=== PATIENT | male | born 1990 | race Caucasian/White ===

== ENCOUNTER 2017-10-16 20:12 | Observation (INO) | payer OTHER ==
[~2017-10-16] VITALS: Ht 182.9 cm; Wt 90.7 kg
[2017-10-16 20:43] LABS: ABSOLUTE BASOPHIL COUNT 0 /CUMM (0.0-0.2); ABSOLUTE EOSINOPHIL COUNT 0.4 /CUMM (0.0-0.7); ABSOLUTE GRANULOCYTE CT 5.8 /CUMM (1.4-6.5); ABSOLUTE LYMPH COUNT 2.7 /CUMM (1.2-3.4); BASOPHIL % 0.4 % (0.0-2.0); EOSINOPHIL % 4.4 % (0-5); GRANULOCYTE % 57.9 % (42.2-75.2); HEMATOCRIT 44.2 % (42-52); MEAN CORPUSCULAR HGB 30.9 PG (27.0-31.0); MEAN CORPUSCULAR HGB CONC 34.5 G/DL (33.0-37.0); MEAN CORPUSCULAR VOLUME 89.8 FL (80.0-94.0); MEAN PLATELET VOLUME 8.5 FL (7.4-10.4); PLATELET COUNT 238 /CUMM (130-400); RBC DISTRIBUTION WIDTH 12.6 % (11.5-14.5); RED BLOOD CELL CT 4.93 /CUMM (4.70-6.10); WHITE BLOOD CELL COUNT 10.1 /CUMM (4.8-10.8)
--- NOTE | 2017-10-16 21:18 | ED GI/GU/ABDOMINAL COMPLAINT ---
History of Present Illness General Chief Complaint: Abdominal Pain/Flank Pain Stated Complaint: ABD PAIN Source: patient Exam Limitations: no limitations Vital Signs & Intake/Output Vital Signs & Intake/Output Vital Signs Date Time Temp Pulse Resp B/P B/P Pulse O2 O2 Flow FiO2 Mean Ox Delivery Rate 10/16 2347 96.3 78 18 121/64 98 Room Air 10/163 99.2 10/16 2204 99.2 80 18 128/82 97 Room Air 10/16 2202 100.5 10/16 2028 100.5 102 20 146/105 98 ED Intake and Output 10/17 0000 10/16 1200 Intake Total 0 Output Total 0 Balance 0 Intake, Oral 0 Output, Urine 0 Patient 200 lb Weight Allergies Uncoded Allergies: PENCILLIN (HIVES 10/16/17) Triage Note: PER PT NV YESTERDAY PAIN LUQ NONRADIATING WENT TO WALK IN SENT TO ED VIA EMS NO APPETITIE, Triage Nurses Notes Reviewed? yes Onset: Gradual Duration: day(s): Timing: recent history Quality/Severity: moderate Severity Numbers: 5 Location: right lower quadrant HPI: 27-year-old male presents emergency department complaining of right lower quadrant abdominal pain beginning yesterday. Patient states the pain has been gradually worsening. Pain described as right lower quadrant, 5/10 while at rest , 8/10 while walking or with movement. Pain radiates slightly toward right flank. Patient also reports nausea yesterday with anorexia. Last bowel movement was yesterday and normal. Patient was seen and evaluated at an urgent care today and referred here to the emergency department for further evaluation. The patient denies diarrhea, vomiting, dyspnea, recent travel, history of similar abdominal pain. (Sherry Clements) Reconcile Medications No Known Home Medications (Alana LECHUGA,Adam Cordova) Past History Travel History Traveled to [place] past 21 day No Medical History Any Pertinent Medical History? see below for history Neurological: NONE EENT: NONE Cardiovascular: hypertension Gastrointestinal: NONE Hepatic: NONE Renal: NONE Musculoskeletal: NONE Psychiatric: NONE Endocrine: NONE Surgical History Surgical History: non-contributory Psychosocial History What is your primary language Trinidadian Tobacco Use: Never used Family History Hx Contributory? No (Sherry Clements) Review of Systems Review of Systems Constitutional: Reports: see HPI. EENTM: Reports: no symptoms. Respiratory: Reports: no symptoms. Cardiovascular: Reports: no symptoms. GI: Reports: see HPI. Genitourinary: Reports: no symptoms. Musculoskeletal: Reports: no symptoms. Skin: Reports: no symptoms. Neurological/Psychological: Reports: no symptoms. Hematologic/Endocrine: Reports: no symptoms. Immunologic/Allergic: Reports: no symptoms. All Other Systems: Reviewed and Negative (Carol LYMAN,Sherry Ledbetter) Physical Exam Physical Exam General Appearance: well developed/nourished, no apparent distress, alert, awake Head: atraumatic, normal appearance Eyes: Bilateral: normal appearance. Ears, Nose, Throat, Mouth: hearing grossly normal, moist mucous membrane Neck: normal inspection, supple, full range of motion Respiratory: normal breath sounds, no respiratory distress, lungs clear Cardiovascular: tachycardia Gastrointestinal: normal bowel sounds, soft, no organomegaly, RLQ tenderness with rebound tenderness, +McBurney's point tenderness, -Rosving's sign Back: normal inspection, normal range of motion Extremities: normal range of motion Neurologic/Psych: awake, alert, oriented x 3 Skin: intact, normal color, warm/dry Core Measures ACS in differential dx? No Sepsis Present: No Sepsis Focused Exam Completed? No (Carol LYMAN,Sherry Ledbetter) Progress Differential Diagnosis: appendicitis, bowel obstruction, cholecystitis, diverticulitis, gastritis, hepatitis, hernia, inflamm bowel dis, pancreatitis, peptic ulcer, PUD/GERD, SBO, ureterolithiasis, UTI/pyelo Plan of Care: Orders Procedure Date/time Status Nothing by Mouth 10/17 B Active Vital Signs 10/17 112 Active Teach/Educate 10/17 112 Active Pain Treatment and Response 10/17 112 Active Nutritional Intake, Monitor 10/17 112 Active Isolation 10/17 011 Active Intake & Output 10/17 011 Active Patient Care Conference 10/17 011 Active Activity/Ambulation 10/17 011 Active Pathway - chart 10/16 2340 Active Patient Data 10/16 2335 Active Code Status 10/16 2335 Active Add-on Test (ER Only) 10/16 2128 Active HIGH SENSITIVITY CRP 10/16 2028 Complete C-REACTIVE PROTEIN 10/16 2028 Complete URINALYSIS 10/16 2022 Active LIPASE 10/16 2022 Complete COMPREHENSIVE METABOLIC PANEL 10/16 2022 Complete CBC WITHOUT DIFFERENTIAL 10/16 2022 Complete AMYLASE 10/[address] in observation 10/16 UNK Active VTE Mechanical Prophylaxis 10/16 UNK Active Vital Signs 10/16 UNK Active Intake & Output 10/16 UNK Active Activity/Ambulation 10/16 UNK Active Current Medications Sig/Toni Start time Last Medication Dose Stop Time Status Admin Heparin Sodium 5,000 UNIT Q8 10/17 1400 AC (Porcine) Ceftriaxone Sodium 1,000 MG DAILY 10/17 1000 AC (Rocephin) Metronidazole 500 MG IQ8 10/17 0800 AC (Flagyl) N/A 1 UNIT (No Carrier) Acetaminophen 650 MG Q6PRN PRN 10/16 234 AC (Tylenol) Dextrose/Sodium 1,000 ML .Q8H 10/16 2345 AC 10/17 Chloride 0025 (D5-Normal Saline) Hydromorphone HCl 1 MG Q2-3 HRS NEEDED.. 10/16 2344 CAN (Dilaudid) Morphine Sulfate 2 MG Q2P PRN 10/16 2345 AC (Morphine) Morphine Sulfate 4 MG Q2P PRN 10/16 234 AC (Morphine) Ondansetron HCl 4 MG Q6-PRN PRN 10/16 234 AC (Zofran) Laboratory Tests 10/16/172028: Anion Gap 12, Estimated GFR > 60, BUN/Creatinine Ratio 19.0, Glucose 87, Calcium 9.7, Total Bilirubin 0.9, AST 29, ALT 42, Alkaline Phosphatase 99, C-Reactive Prot, Quant 4.3 H, C-React Prot High Sens > 15.0 H, Total Protein 7.8, Albumin 4.7, Globulin 3.1, Albumin/Globulin Ratio 1.5, Amylase 48, Lipase 69, CBC w Diff NO MAN DIFF REQ, RBC 4.93, MCV 89.8, MCH 30.9, MCHC 34.5, RDW 12.6, MPV 8.5, Gran % 57.9, Lymphocytes % 27.2, Monocytes % 10.1 H, Eosinophils % 4.4, Basophils % 0.4, Absolute Granulocytes 5.8, Absolute Lymphocytes 2.7, Absolute Monocytes 1.0 H, Absolute Eosinophils 0.4, Absolute Basophils 0 Patient medicated with IV fluids, acetaminophen regarding his tachycardia and fever. Patient with right lower quadrant tenderness, anorexia, nausea which is suspicious for appendicitis. We'll obtain CT scan to further assess for intra- abdominal pathology. The patient was signed out to Dr. Warner pending CT scan. Initial ED EKG: none Hand-Off Endorsed To: Adam Warner MD Endorsed Time: 2238 Pending: CT (Sherry Clements) Diagnostic Imaging: Viewed by Me: CT Scan. Discussed w/RAD: CT Scan. Radiology Impression: PATIENT: NIDA MILES PRESENT AGE: 27 PATIENT ACCOUNT NO: [id number] : 88 LOCATION: [facility] ORDERING PHYSICIAN: Sherry LYMAN SERVICE DATE: 10/16/17 EXAM TYPE: CAT - CT ABD & PELVIS W IV CONTRAST EXAMINATION: CT ABDOMEN AND PELVIS WITH CONTRAST CLINICAL INFORMATION: Tenderness right lower quadrant. Fever. COMPARISON: None TECHNIQUE: Multidetector volumetric imaging was performed of the abdomen and pelvis following IV administration of 98 mL of Optiray 320 intravenous contrast. Sagittal and coronal reformatted images were obtained on the technologist's workstation. DLP: 370.53 mGy-cm FINDINGS: LUNG BASES: The visualized lung bases are unremarkable. LIVER, GALLBLADDER, AND BILIARY TREE: The liver is normal in size, shape, and attenuation. No focal hepatic lesion or biliary ductal dilatation is present. Gallbladder is contracted. No bile duct dilatation. PANCREAS: Unremarkable. SPLEEN: Unremarkable. ADRENAL GLANDS: Unremarkable. KIDNEYS AND URETERS: The kidneys are normal in size, shape, and attenuation. No hydronephrosis, hydroureter, or calculi seen. No perinephric stranding. BLADDER: Unremarkable. GASTROINTESTINAL TRACT: There is subtle edema around the appendix in the mesentery. The appendix measures 7 mm in diameter. Findings concerning for appendicitis in appropriate clinical setting. No acute change of the bowel. No bowel obstruction. No bowel wall thickening or edema. Scattered stool in the colon. ABDOMINAL WALL: No significant hernia is appreciated. LYMPH NODES: Normal. VASCULAR: Unremarkable. PELVIC VISCERA: Unremarkable. OSSEOUS STRUCTURES: Unremarkable. IMPRESSION: The appendix measures 7 mm in diameter and there is subtle periappendiceal edema in the mesentery which are findings concerning for appendicitis. DICTATED BY: Jhony Thomas MD DATE/TIME DICTATED:10/16/172309 ETHANOL MAINTENANCE MECHANIC:TEDDY DATE/TIME TRANSCRIBED:10/16/172309 CONFIDENTIAL, DO NOT COPY WITHOUT APPROPRIATE AUTHORIZATION. <Electronically signed in Other Vendor System> SIGNED BY: Jhony Thomas MD 10/16/17 3923 (Alana LECHUGA,Adam Cordova) Departure Departure Disposition: STILL A PATIENT Condition: Stable Referrals: Irineo LECHUGA,Darek Hayes (PCP/Family) Departure Forms: Customer Survey General Discharge Information (Carol LYMAN,Sherry Ledbetter) Departure Clinical Impression Primary Impression: Appendicitis Prescriptions: Current Visit Scripts No Known Home Medications Observation Note Spoke With: Dominik LECHUGA,Emerson Clark Place Patient In: Non-ED OBS Care Area Rationale for Observation: My rational for observation is as follows . PT WITH APPENDICITIS... WILL NEED SURGERY. PA/LIME PULLER Co-Sign Statement Statement: ED Attending supervision documentation- [X] I saw and evaluated the patient. I have also reviewed all the pertinent lab results and diagnostic results. I agree with the findings and the plan of care as documented in the PA's/LIME PULLER's documentation. 10/16/17, 23:40... PT WITH APPY ON CT SCAN... MERITS SURGICAL REPAIR. [] I have reviewed the ED Record and agree with the PA's/LIME PULLER's documentation. [] Additions or exceptions (if any) to the PAs/LIME PULLER's note and plan are summarized below: [] (Alana LECHUGA,Adam Cordova)
--- NOTE | 2017-10-16 23:18 | CT SCAN REPORT ---
EXAMINATION: CT ABDOMEN AND PELVIS WITH CONTRAST CLINICAL INFORMATION: Tenderness right lower quadrant. Fever. COMPARISON: None TECHNIQUE: Multidetector volumetric imaging was performed of the abdomen and pelvis following IV administration of 98 mL of Optiray 320 intravenous contrast. Sagittal and coronal reformatted images were obtained on the technologist's workstation. DLP: 370.53 mGy-cm FINDINGS: LUNG BASES: The visualized lung bases are unremarkable. LIVER, GALLBLADDER, AND BILIARY TREE: The liver is normal in size, shape, and attenuation. No focal hepatic lesion or biliary ductal dilatation is present. Gallbladder is contracted. No bile duct dilatation. PANCREAS: Unremarkable. SPLEEN: Unremarkable. ADRENAL GLANDS: Unremarkable. KIDNEYS AND URETERS: The kidneys are normal in size, shape, and attenuation. No hydronephrosis, hydroureter, or calculi seen. No perinephric stranding. BLADDER: Unremarkable. GASTROINTESTINAL TRACT: There is subtle edema around the appendix in the mesentery. The appendix measures 7 mm in diameter. Findings concerning for appendicitis in appropriate clinical setting. No acute change of the bowel. No bowel obstruction. No bowel wall thickening or edema. Scattered stool in the colon. ABDOMINAL WALL: No significant hernia is appreciated. LYMPH NODES: Normal. VASCULAR: Unremarkable. PELVIC VISCERA: Unremarkable. OSSEOUS STRUCTURES: Unremarkable. IMPRESSION: The appendix measures 7 mm in diameter and there is subtle periappendiceal edema in the mesentery which are findings concerning for appendicitis.
--- NOTE | 2017-10-16 23:42 | Admission Core Measures ---
Acute Coronary Syndrome (CM) ACS Core Measures Acute Coronary Syndrome Diagnosis No Congestive Heart Failure (NEW) CHF Core Measures Congestive Heart Failure Diagnosis No Cerebrovascular Accident (NEW) CVA Core Measures CVA/TIA Diagnosis No Venous Thromboembolism VTE Core Alex (View Protocol) VTE Risk Factors Surgery No Mechanical VTE Prophylaxis d/t N/A MechProphylax Ordered No VTE Pharm Prophylaxis d/t NA PharmProphylax ordered Problem List As ranked by this Provider includes Assessment & Plan 1. Appendicitis HOME MEDS Home Med List No Known Home Medications
--- NOTE | 2017-10-16 23:50 | History & Physical Pre-Op ---
Maria D Marte 10/16/17 1002: General Information and HPI History of Present Illness: 27yoM with no PMHx presents to emergency Department evening with complaints of 2 days of worsening abdominal pain. Pain began as vague generalized discomfort and has now localized to sharp pain in the right lower quadrant. He has had some nausea, though no emesis. Last bowel movement yesterday. He had a small snack of almonds at lunch today, otherwise has not eaten since yesterday lunch. Denies chest pain, shortness of breath, fevers, chills, sick contacts, changes in urination, changes in bowel habits. Denies abdominal surgery history. Denies history of gastrointestinal disorders. Allergies/Medications Home Med list No Known Home Medications Past History Medical History Cardiovascular: NONE Respiratory: NONE Gastrointestinal: NONE Renal: NONE Musculoskeletal: sp R wrist surgery 2017 Surgical History Pertinent Surgical History: r wrist procedure Past Family/Social History Psychosocial History Where Do You Live? 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 Exam & Diagnostic Data Last 24 Hrs of Vital Signs/I&O Vital Signs Date Time Temp Pulse Resp B/P B/P Pulse O2 O2 Flow FiO2 Mean Ox Delivery Rate 10/16 2312 99.2 10/16 2204 99.2 80 18 128/82 97 Room Air 10/16 2202 100.5 10/16 2028 100.5 102 20 146/105 98 Physical Exam: GEN: NAD CARD: S1S2 RRR PULM: CTAB ABD: softly distended, ttp rlq and suprapubic, no r/g, quiet bs, no lesions or masses EXT: calves soft nt, no edema Last 24 Hrs of Labs/Anuj: Laboratory Tests 10/16/172028: Anion Gap 12, Estimated GFR > 60, BUN/Creatinine Ratio 19.0, Glucose 87, Calcium 9.7, Total Bilirubin 0.9, AST 29, ALT 42, Alkaline Phosphatase 99, C-Reactive Prot, Quant 4.3 H, C-React Prot High Sens > 15.0 H, Total Protein 7.8, Albumin 4.7, Globulin 3.1, Albumin/Globulin Ratio 1.5, Amylase 48, Lipase 69, CBC w Diff NO MAN DIFF REQ, RBC 4.93, MCV 89.8, MCH 30.9, MCHC 34.5, RDW 12.6, MPV 8.5, Gran % 57.9, Lymphocytes % 27.2, Monocytes % 10.1 H, Eosinophils % 4.4, Basophils % 0.4, Absolute Granulocytes 5.8, Absolute Lymphocytes 2.7, Absolute Monocytes 1.0 H, Absolute Eosinophils 0.4, Absolute Basophils 0 Diagnostic Data Other Results SERVICE DATE: 10/16/17 EXAM TYPE: CAT - CT ABD & PELVIS W IV CONTRAST EXAMINATION: CT ABDOMEN AND PELVIS WITH CONTRAST CLINICAL INFORMATION: Tenderness right lower quadrant. Fever. COMPARISON: None TECHNIQUE: Multidetector volumetric imaging was performed of the abdomen and pelvis following IV administration of 98 mL of Optiray 320 intravenous contrast. Sagittal and coronal reformatted images were obtained on the technologist's workstation. DLP: 370.53 mGy-cm FINDINGS: LUNG BASES: The visualized lung bases are unremarkable. LIVER, GALLBLADDER, AND BILIARY TREE: The liver is normal in size, shape, and attenuation. No focal hepatic lesion or biliary ductal dilatation is present. Gallbladder is contracted. No bile duct dilatation. PANCREAS: Unremarkable. SPLEEN: Unremarkable. ADRENAL GLANDS: Unremarkable. KIDNEYS AND URETERS: The kidneys are normal in size, shape, and attenuation. No hydronephrosis, hydroureter, or calculi seen. No perinephric stranding. BLADDER: Unremarkable. GASTROINTESTINAL TRACT: There is subtle edema around the appendix in the mesentery. The appendix measures 7 mm in diameter. Findings concerning for appendicitis in appropriate clinical setting. No acute change of the bowel. No bowel obstruction. No bowel wall thickening or edema. Scattered stool in the colon. ABDOMINAL WALL: No significant hernia is appreciated. LYMPH NODES: Normal. VASCULAR: Unremarkable. PELVIC VISCERA: Unremarkable. OSSEOUS STRUCTURES: Unremarkable. IMPRESSION: The appendix measures 7 mm in diameter and there is subtle periappendiceal edema in the mesentery which are findings concerning for appendicitis. Assessment/Plan Assessment/Plan: A: 27yoM with acute appendicitis, stable P: - lee/flag - DVT ppx- alps, hep sq - npo, ivf, iv meds - prn pain meds - OOB, ambulate -will require surgical intervention -Bring into hospital under observation status to surgical service, attending Dr. Lehman -Discussed with Dr. Lehman As Ranked By This Provider Problem List: 1. Appendicitis Emerson Lehman MD 10/17/17 0845: General Information and HPI Allergies/Medications Allergies: Coded Allergies: Penicillins (HIVES 10/17/17) Attending MD Review Statement Attending Statement Attending MD Statement: examined this patient, discuss w/resident/PA/STORAGE GARAGE ATTENDANT, reviewed images Attending Assessment/Plan: Patient presents with classic progressive abdominal pain for acute appendicitis. Physical examination and CT scan confirmed the diagnosis. Plan will be for IV antibiotics and laparoscopic appendectomy. He is informed the risks operation including bleeding, infection and agrees to proceed.
[2017-10-17 01:18] VITALS: BP 130/80
[2017-10-17 07:30] VITALS: BP 122/78
[2017-10-17] MEDS ORDERED: PERCOCET 5-3251 EACH PO (08:46)
--- NOTE | 2017-10-17 08:51 | Operative Report ---
Operative/Inv Procedure Report Surgery Date: 10/17/17 Name of Procedure: Laparoscopic appendectomy Pre-Operative Diagnosis: Acute appendicitis Post-Operative Diagnosis: Same Estimated Blood Loss: scant Surgeon/Accounting Administrator: Dominik LECHUGA,Emerson Clark/Pernell LYMAN Anesthesia: general endotracheal tube Drains: None Specimens: Appendix Operative Indication: 27-year-old male presents with classic progression of abdominal pain for acute appendicitis. CT scanning confirms the diagnosis. Plan is for laparoscopic appendectomy Operative/Procedure Note Note: After consent patient is brought to the operating room and laid supine. General anesthesia was obtained his abdomen was prepped and draped. Skin above the umbilicus was after local anesthesia a curvilinear incision made sharply. We dissected through subcutaneous tissues tissues bluntly and identified the fascia. It was grasped with Monica's and a fasciotomy created sharply. The peritoneum was entered sharply and a blunt Xiao port was placed. Pneumoperitoneum was achieved. 2, 5 mm ports were placed in the suprapubic region and left lower quadrant, after local anesthesia was instilled and under direct vision the camera. Patient placed in Trendelenburg and rotated towards the left. The abdomen was explored. There is trace amount of turbid fluid in the right lower quadrant around moderately inflamed appendix. There is no evidence of perforation. In order to visualize the appendix the adhesions to the terminal ileum were taken down laterally with cautery. The base the appendix and grasped with a [place] and a window in the mesentery developed with a [place] dissector. The vascular pedicle was taken with the Endo ISABELLA Mckeon load. The base divided with a reload. The appendix placed in Endo Catch bag and cinched up. The right lower quadrant and pelvis were then irrigated with normal saline. Hemostasis was adequate. Ports then removed and appendix delivered and passed off the field. The fascia was closed 0 Vicryl suture. Skin incisions closed with 4-0 Vicryl. Steri-Strips and sterile dressing applied. Sponge and needle counts are correct CC: Irineo LECHUGA,Darek Hayes
--- NOTE | 2017-10-17 08:51 | Patient Discharge Instructions ---
Discharge Instructions General Discharge Information You were seen/treated for: acute appendicitis You had these procedures: Laparoscopic appendectomy on 10/17/[address] Lehman Watch for these problems: Increased pain, fever, chills, redness/swelling/drainage from/around your incisions Do not soak the wound: Yes No bath, but you may shower: Yes Other wound care: Keep incisions clean an dry, allow steri-strips to fall off on their own. Diet Continue normal diet: Yes (Advance as tolerated) Activity Activity Self Limited: Yes Pounds, do NOT lift more than: 10 Other activity limits: No heavy lifting or strenous activity Acute Coronary Syndrome Inclusion Criteria At DC or during hospital stay patient has or had the following: ACS DIAGNOSIS No Discharge Core Measures Meds if any: Prescribed or Continued at Discharge Meds if any: NOT Prescribed or Continued at Discharge Congestive Heart Failure Inclusion Criteria At DC or during hospital stay patient has or had the following: CHF DIAGNOSIS No Discharge Core Measures Meds if any: Prescribed or Continued at Discharge Meds if any: NOT Prescribed or Continued at Discharge Cerebrovascular accident Inclusion Criteria At DC or during hospital stay patient has or had the following: CVA/TIA Diagnosis No Discharge Core Measures Meds if any: Prescribed or Continued at Discharge Meds if any: NOT Prescribed or Continued at Discharge Venous thromboembolism Inclusion Criteria VTE Diagnosis No VTE Type NONE VTE Confirmed by (Test) NONE Discharge Core Measures - Per Current guidelines, there needs to be overlap - treatment for the first 5 days of Warfarin therapy. - If discharged on Warfarin prior to 5 days of - overlap therapy, the patient will need to be - assessed for post discharge needs including - *Post discharge parental anticoagulation - *Warfarin and/or parental anticoagulation education - *Follow up date to check INR post discharge At least 5 days overlap therapy as Inpatient No Meds if any: Prescribed or Continued at Discharge Note: Overlap Therapy is Warfarin and Anticoagulant Meds if any: NOT Prescribed or Continued at Discharge
[2017-10-17 09:48] VITALS: BP 140/82
--- NOTE | 2017-10-17 11:11 | PN- General Surgery ---
Subjective Subjective: POSTOP CHECK Patient reports crampy abdominal pain which is well controlled. He reports nausea which is improving and states that he tolerated breakfast. He denies voiding or ambulating. Objective Vital Signs and I&Os Vital Signs Date Time Temp Pulse Resp B/P B/P Pulse O2 O2 Flow FiO2 Mean Ox Delivery Rate 10/17 0948 97.7 68 18 140/82 100 Room Air 10/17 0730 97.9 68 20 122/78 97 Room Air 10/17 0118 99.0 80 20 130/80 96 Room Air 10/16 2347 96.3 78 18 121/64 98 Room Air 10/16 2313 99.2 10/16 2204 99.2 80 18 128/82 97 Room Air 10/16 2202 100.5 10/16 2028 100.5 102 20 146/105 98 Intake & Output 10/17 1600 10/17 0800 10/17 0000 10/16 1600 10/16 0800 10/16 0000 Intake Total 625 0 Output Total 725 0 Balance -100 0 Intake, IV 625 Intake, Oral 0 Output, Urine 725 0 Patient 200 lb 200 lb Weight Physical Exam: Gen - resting comfortably awake an alert in NAD Cardiac - S1S2 noted, RRR Lungs - CTAB Abd - soft, mildly distended, hypoactive bowel sounds, dressings x3 c/d/i, appropriately tender franklyn-incisionally, no rebound or guarding noted. Ext - alps in place, no edema or calf tenderness B/L Current Medications: Current Medications Sig/Toni Start time Last Medication Dose Route Stop Time Status Admin Acetaminophen 650 MG Q6PRN PRN 10/16 2344 AC PO Acetaminophen 0 .STK-MED ONE 10/16 2152 DC IV Acetaminophen 1,000 MG ONCE ONE 10/16 2129 DC 10/16 N/A 1 UNIT IV 10/16 Ceftriaxone Sodium 1,000 MG DAILY 10/17 1000 CAN IV Ceftriaxone Sodium 0 .STK-MED ONE 10/17 0020 DC .ROUTE Ceftriaxone Sodium 1,000 MG ONCE ONE 10/16 2344 DC 10/17 IV 10/16 2345 0025 Dextrose/Sodium 1,000 ML .Q20H 10/165 AC 10/17 Chloride IV 0025 Heparin Sodium 5,000 UNIT Q8 10/17 1400 AC (Porcine) SC Hydromorphone HCl 1 MG Q2-3 HRS NEEDED.. 10/16 2344 CAN IV Ketorolac 0 .STK-MED ONE 10/16 2314 DC Tromethamine .ROUTE Ketorolac 30 MG ONCE ONE 10/16 2244 DC 10/16 Tromethamine IV 10/16 2245 231 Metronidazole 500 MG IQ8 10/17 0800 DC N/A 1 UNIT IV Metronidazole 500 MG ONCE ONE 10/16 2344 DC 10/17 N/A 1 UNIT IV 10/17 0044 0025 Morphine Sulfate 2 MG Q2P PRN 10/16 2344 AC 10/17 IV 0954 Morphine Sulfate 4 MG Q2P PRN 10/16 2344 DC IV Ondansetron HCl 4 MG Q6-PRN PRN 10/16 2344 AC 10/17 IV 0954 Oxycodone/ 1 TAB Q4-6 PRN PRN 10/17 09 AC Acetaminophen PO Oxycodone/ 2 TAB Q4-6 PRN PRN 10/17 0900 AC Acetaminophen PO Sodium Chloride 1,000 ML BOLUS ONE 10/16 2129 DC 10/16 IV 10/16 Results Last 48 Hours of Labs: Laboratory Tests 10/17 10/16 0550 2028 Chemistry Sodium (137 - 145 mmol/L) 138 Potassium (3.5 - 5.1 mmol/L) 4.1 Chloride (98 - 107 mmol/L) 101 Carbon Dioxide (22 - 30 mmol/L) 24 Anion Gap (5 - 16) 12 BUN (9 - 20 mg/dL) 19 Creatinine (0.7 - 1.2 mg/dL) 1.0 Estimated GFR (>60 ml/min) > 60 BUN/Creatinine Ratio (7 - 25 %) 19.0 Glucose (65 - 99 mg/dL) 87 Calcium (8.4 - 10.2 mg/dL) 9.7 Total Bilirubin (0.2 - 1.3 mg/dL) 0.9 AST (17 - 59 U/L) 29 ALT (21 - 72 U/L) 42 Alkaline Phosphatase (< 127 U/L) 99 C-Reactive Prot, Quant (<1.0 mg/dL) 4.3 H C-React Prot High Sens (1.0 - 3.0 mg/L) > 15.0 H Total Protein (6.3 - 8.2 g/dL) 7.8 Albumin (3.5 - 5.0 g/dL) 4.7 Globulin (1.9 - 4.2 gm/dL) 3.1 Albumin/Globulin Ratio (1.1 - 2.2 %) 1.5 Amylase (30 - 110 U/L) 48 Lipase (23 - 300 U/L) 69 Hematology CBC w Diff NO MAN DIFF REQ WBC (4.8 - 10.8 /CUMM) 10.1 RBC (4.70 - 6.10 /CUMM) 4.93 Hgb (14.0 - 18.0 G/DL) 15.2 Hct (42 - 52 %) 44.2 MCV (80.0 - 94.0 FL) 89.8 MCH (27.0 - 31.0 PG) 30.9 MCHC (33.0 - 37.0 G/DL) 34.5 RDW (11.5 - 14.5 %) 12.6 Plt Count (130 - 400 /CUMM) 238 MPV (7.4 - 10.4 FL) 8.5 Gran % (42.2 - 75.2 %) 57.9 Lymphocytes % (20.5 - 51.1 %) 27.2 Monocytes % (1.7 - 9.3 %) 10.1 H Eosinophils % (0 - 5 %) 4.4 Basophils % (0.0 - 2.0 %) 0.4 Absolute Granulocytes (1.4 - 6.5 /CUMM) 5.8 Absolute Lymphocytes (1.2 - 3.4 /CUMM) 2.7 Absolute Monocytes (0.10 - 0.60 /CUMM) 1.0 H Absolute Eosinophils (0.0 - 0.7 /CUMM) 0.4 Absolute Basophils (0.0 - 0.2 /CUMM) 0 Urines Urine Color (YEL,AMB,STR) YEL Urine Clarity (CLEAR) CLEAR Urine pH (5.0 - 8.0) 6.0 Ur Specific [place] (1.001 - 1.035) <= 1.005 Urine Protein (NEG,<30 MG/DL) NEG Urine Ketones (NEG) TRACE H Urine Nitrite (NEG) NEG Urine Bilirubin (NEG) NEG Urine Urobilinogen (0.1 - 1.0 EU/dl) 0.2 Ur Leukocyte Esterase (NEG) NEG Ur Microscopic EXAM NOT REQUIRED Urine Hemoglobin (NEG) NEG Urine Glucose (N MG/DL) NEG Assessment/Plan Assessment/Plan 27 M s/p lap appy secondary to acute appendicitis who is recovering well, stable for discharge Cont reg diet, d/c IVF Pain regimen prn, d/c IV morphine Antiemetics prn DVT ppx - hsq, alps Encourage ambulation F/u Dr. Lehman in 1-2 weeks D/c home today Core Measures Venous Thromboembolism VTE Risk Factors Surgery No Mechanical VTE Prophylaxis d/t N/A MechProphylax Ordered No VTE Pharm Prophylaxis d/t NA PharmProphylax ordered
== END 2017-10-17 11:45 ==
LOC: ERH 20:12 → ERHI 23:35 → 2NA 23:35 → ENRESERV 23:55 → 2NA 10-17 01:12 → ENTRNSPT 10-17 09:29 → EDTRNSPTSTS 10-17 09:31 → CMPTRNSPT 10-17 10:03 → ENPENDDIS 10-17 11:23 → ENTRNSPT 10-17 11:30 → 2NA 10-17 11:45 → EDTRNSPTSTS 10-17 11:48 → CMPTRNSPT 10-17 11:49
PROVIDERS: Pediatrics
DX: K35.80 Unspecified acute appendicitis (principal); R10.31 Right lower quadrant pain; I10 Essential (primary) hypertension
CPT/HCPCS: 6030; 74177; 81003; 88304; 96374; 96375; G0378; J0131; J0696; J1644; J1885; J2405